=== PATIENT | male | born 1970 | race American Indian/Alaskan Native ===

== ENCOUNTER 2016-09-28 00:32 | Emergency (ER) | payer SELFPAY ==
[2016-09-28 01:27] VITALS: BP 165/118
[2016-09-28 02:00] LABS: Basophils % (Auto) 1.2 % (0.0-1.8); Eosinophils % (Auto) 1.8 % (0.0-4.3); Hematocrit 43.3 % (35.5-45.6); Hemoglobin 14.4 gm/dl (11.8-15.2); Mean Corpuscular HGB Conc 33 % (32-34); Mean Corpuscular Hemoglobin 30 pg (28-32); Mean Corpuscular Volume 91 fl (84-94); Platelet Count 229 K/mm3 (140-440); Red Blood Count 4.75 M/mm3 (3.65-5.03); White Blood Count 6.2 K/mm3 (4.5-11.0)
[2016-09-28 02:15] LABS: Alanine Aminotransferase 21 units/L (7-56); Albumin 3.7 g/dL (3.9-5); Albumin/Globulin Ratio 1.3 %; Alkaline Phosphatase 44 units/L (35-129); Anion Gap 16 mmol/L; Bilirubin,Total < 0.2 mg/dL (0.1-1.2); Blood Urea Nitrogen 11 mg/dL (9-20); Calcium 8.8 mg/dL (8.4-10.2); Carbon Dioxide 26 mmol/L (22-30); Chloride 104.3 mmol/L (98-107); Glucose 88 mg/dL (75-100); Lipase 31 units/L (13-60); Potassium 3.9 mmol/L (3.6-5.0); Sodium 142 mmol/L (137-145); Total Protein 6.6 g/dL (6.3-8.2)
[2016-09-28 03:04] LABS: Bilirubin,Urine NEG (Negative); Blood,Urine SM (Negative); Ketones,Urine NEG (Negative); Leukocyte Esterase,Urine MOD (Negative); Mucus,Urine FEW /HPF; Nitrite,Urine NEG (Negative); Protein,Urine <15 mg/dL mg/dL (Negative); Urobilinogen,Urine < 2.0 mg/dL (<2.0)
--- NOTE | 2016-10-02 00:58 | ED Elopement Review ---
ED Pt Elopement review - Results review Lab results: Laboratory Tests 09/28/16 09/28/16 09/28/16 01:41 01:41 02:28 WBC 6.2 RBC 4.75 Hgb 14.4 Hct 43.3 MCV 91 MCH 30 MCHC 33 RDW 14.0 Plt Count 229 Lymph % (Auto) 50.7 H [place] % (Auto) 9.6 H Eos % (Auto) 1.8 Baso % (Auto) 1.2 Lymph # 3.2 [place] # 0.6 Eos # 0.1 Baso # 0.1 Seg Neutrophils % 36.7 L Seg Neutrophils # 2.3 Sodium 142 Potassium 3.9 Chloride 104.3 Carbon Dioxide 26 Anion Gap 16 BUN 11 Creatinine 1.0 Estimated GFR > 60 BUN/Creatinine Ratio 11.00 Glucose 88 Calcium 8.8 Total Bilirubin < 0.2 AST 21 ALT 21 Alkaline Phosphatase 44 Total Protein 6.6 Albumin 3.7 L Albumin/Globulin Ratio 1.3 Lipase 31 Urine Color Yellow Urine Turbidity Clear Urine pH 6.0 Ur Specific [place] 1.017 Urine Protein <15 mg/dl Urine Glucose (UA) Neg Urine Ketones Neg Urine Blood Sm Urine Nitrite Neg Urine Bilirubin Neg Urine Urobilinogen < 2.0 Ur Leukocyte Esterase Mod Urine WBC (Auto) 21.0 H Urine RBC (Auto) 2.0 U Epithel Cells (Auto) < 1.0 Urine Mucus Few - Call Back decision Pt Call Back Decision: Pt to F/U with PMD (elevated urine WBC and elevated bp, needs reeval, may return to ed if sx continue)
== END 2016-09-28 04:36 | disposition left against medical advice (07) ==
LOC: ED 00:32
DX: R10.9 Unspecified abdominal pain (principal); R51 Headache; Z53.21 Procedure and treatment not carried out due to patient leaving prior to being seen by health care provider
CPT/HCPCS: 36415; 80053; 81001; 83690; 85025

== ENCOUNTER 2019-08-07 18:17 | Observation (INO) | payer OTHER ==
[2019-08-07 18:55] LABS: Basophils % (Auto) 0.8 % (0.0-1.8); Eosinophils # (Auto) 0.1 K/mm3 (0.0-0.4); Eosinophils % (Auto) 0.9 % (0.0-4.3); Hematocrit 37.9 % (35.5-45.6); Hemoglobin 12.8 gm/dl (11.8-15.2); Lymphocytes # (Auto) 2.7 K/mm3 (1.2-5.4); Lymphocytes % (Auto) 42.4 % (13.4-35.0); Mean Corpuscular HGB Conc 34 % (32-34); Mean Corpuscular Volume 90 fl (84-94); Monocytes # (Auto) 0.6 K/mm3 (0.0-0.8); Platelet Count 249 K/mm3 (140-440); Red Blood Count 4.19 M/mm3 (3.65-5.03); Red Cell Distribution Width 14.5 % (13.2-15.2)
--- NOTE | 2019-08-07 18:58 | Cat Scan Report ---
CT head/brain wo con INDICATION / CLINICAL INFORMATION: 48 years Male; neuro deficits <6hrs or sx present upon awakening. TECHNIQUE: Routine CT head without contrast. All CT scans at this location are performed using CT dos e reduction for ALARA by means of automated exposure control. COMPARISON: None. FINDINGS: BRAIN / INTRACRANIAL CONTENTS: There is an older infarct involving left villalpando radiata. Otherwise, th ere is mild cerebral white matter disease most consistent with microvascular angiopathy which include s the anterior internal capsules at. The ventricular system is appropriate in size and configuration. There is no clear CT evidence of acute intracranial hemorrhage or significant mass effect. ORBITS: No significant abnormality of visualized orbits. SINUSES / MASTOIDS: No significant abnormality the visualized paranasal sinuses or mastoid air cells. CRANIOCERVICAL JUNCTION: No significant abnormality. ADDITIONAL FINDINGS: None. IMPRESSION: 1. There is no old infarct involving left villalpando radiata. 2. There is otherwise mild microvascular angiopathy without CT evidence of acute intracranial hemorrh age. The study was specified as code stroke and called emergently to the ER at 5:59 PM Central standard [place]. Signer Name: Estuardo Toribio MD Signed: 08/07/2019 6:54 PM Workstation Name: [id number]
[2019-08-07 19:08] LABS: BUN/Creatinine Ratio 5; Blood Urea Nitrogen 6 mg/dL (9-20); Hemolysis Index 10
[2019-08-07 19:13] LABS: INR 1.01 (0.87-1.13)
[2019-08-07 19:14] LABS: Partial Thromboplastin Time 26.2 Sec. (24.2-36.6)
--- NOTE | 2019-08-07 19:20 | Emergency Department Report ---
ED Neuro Deficit HPI - General Chief Complaint: Weakness Stated Complaint: HIGH BLOOD PRESSURE, HEADACHE Time Seen by Provider: 08/07/19 18:44 Source: patient Mode of arrival: Ambulatory Limitations: No Limitations - History of Present Illness Initial Comments: [facility] Date of Service: 08/07/2019 18:37:53 Impression: Headache Comments: No new focal neurologic deficits. Recommend symptomatic treatment of headache and BP management per primary team. Metrics: Last Known Well: 08/07/2019 16:30:00 [facility] Notification Time: 08/07/2019 18:36:40 Arrival Time: 08/07/2019 18:17:00 Stamp Time: 08/07/2019 18:37:53 Time First Login Attempt: 08/07/2019 18:40:00 Video Start Time: 08/07/2019 18:40:00 Symptoms: speech changes NIHSS Start Assessment Time: 08/07/2019 18:42:18 Patient is not a candidate for tPA. Video End Time: 08/07/2019 18:47:00 CT head showed no acute hemorrhage or acute core infarct. Presentation is not suggestive of Large Vessel Occlusive disease. Advanced imaging was not obtained as the presentation was not suggestive of Large Vessel Occlusive Disease. Our recommendations are outlined below. Recommendations: Activate Stroke Protocol Admission/Order Set Stroke/Telemetry Floor Neuro Checks Bedside Swallow Eval DVT Prophylaxis IV Fluids, Normal Saline Head of Bed Below 30 Degrees Euglycemia and Avoid Hyperthermia (PRN Acetaminophen) Initiate Aspirin 81 MG Daily Disposition: Sign Out Sign Out: Discussed with Emergency Department Provider History of Present Illness: Patient is a 48 year old Male. Patient was brought by private transportation with symptoms of speech changes 48 yo M with history of stroke with residual expressive aphasia who is presenting with headache and elevated BP. Patient states that he had elevated BP which concerned him. He has baseline expressive aphasia and denies any new neurologic symptoms. CT head showed no acute hemorrhage or acute core infarct. Examination: 1A: Level of Consciousness - Alert; keenly responsive + 0 1B: Ask Month and Age - Both Questions Right + 0 1C: Blink Eyes & Squeeze Hands - Performs Both Tasks + 0 2: Test Horizontal Extraocular Movements - Normal + 0 3: Test Visual [place] - No Visual Loss + 0 4: Test Facial Palsy (Use Grimace if Obtunded) - Normal symmetry + 0 5A: Test Left Arm Motor Drift - No Drift for 10 Seconds + 0 5B: Test Right Arm Motor Drift - No Drift for 10 Seconds + 0 6A: Test Left Leg Motor Drift - No Drift for 5 Seconds + 0 6B: Test Right Leg Motor Drift - No Drift for 5 Seconds + 0 7: Test Limb Ataxia (FNF/Heel-Fatima) - No Ataxia + 0 8: Test Sensation - Normal; No sensory loss + 0 9: Test Language/Aphasia - Mild-Moderate Aphasia: Some Obvious Changes, Without Significant Limitation + 1 10: Test Dysarthria - Mild-Moderate Dysarthria: Slurring but can be understood + 1 11: Test Extinction/Inattention - No abnormality + 0 NIHSS Score: 2 Patient was informed the Neurology Consult would happen via TeleHealth consult by way of interactive audio and video telecommunications and consented to rec eiving care in this manner. Due to the immediate potential for life-threatening deterioration due to underlying acute neurologic illness, I spent 35 minutes providing critical care. This time includes time for face to face visit via telemedicine, review of medical records, imaging studies and discussion of findings with providers, the patient and/or family. Dr Petra Weber [facility] Case [id number] - Related Data Home Medications: Previous Rx's Medication Instructions Recorded Last Taken Type lisinopriL [Zestril TAB] 20 mg PO QDAY #30 tablet 07/20/14 Unknown Rx Ciprofloxacin HCl [Cipro] 500 mg PO Q12H #20 tab 07/21/14 Unknown Rx HYDROcodone/APAP 5-325 [[place] 1 each PO Q6HR PRN #12 tablet 07/21/14 Unknown Rx 5-325 mg TAB] Prednisone [Prednisone 10 mg 10 mg PO .TAPER #1 tab.ds.pk 12/01/14 Unknown Rx (6-Day Pack, 21 Tabs)] cephALEXin [Keflex] 500 mg PO Q6H #28 capsule 12/01/14 Unknown Rx Baclofen [Lioresal] 10 mg PO TID #12 tab 05/11/18 Unknown Rx Ibuprofen [Motrin 800 MG tab] 800 mg PO Q8H PRN #30 tablet 05/11/18 Unknown Rx Allergies/Adverse Reactions: Allergies Allergy/AdvReac Type Severity Reaction Status Date / Time Sulfa (Sulfonamide Allergy Hives Verified 05/10/18 22:35 Antibiotics) ED Review of Systems ROS: Stated complaint: HIGH BLOOD PRESSURE, HEADACHE Other details as noted in HPI ED Past Medical Hx - Past Medical History Hx Hypertension: Yes Hx CVA: Yes - Surgical History Additional Surgical History: right hand - Social History Smoking Status: Never Smoker Substance Use Type: None - Medications Home Medications: Home Medications Medication Instructions Recorded Confirmed Last Taken Type lisinopriL [Zestril TAB] 20 mg PO QDAY #30 tablet 07/20/14 Unknown Rx Ciprofloxacin HCl [Cipro] 500 mg PO Q12H #20 tab 07/21/14 Unknown Rx HYDROcodone/APAP 5-325 [[place] 1 each PO Q6HR PRN #12 tablet 07/21/14 Unknown Rx 5-325 mg TAB] Prednisone [Prednisone 10 mg 10 mg PO .TAPER #1 tab.ds.pk 12/01/14 Unknown Rx (6-Day Pack, 21 Tabs)] cephALEXin [Keflex] 500 mg PO Q6H #28 capsule 12/01/14 Unknown Rx Baclofen [Lioresal] 10 mg PO TID #12 tab 05/11/18 Unknown Rx Ibuprofen [Motrin 800 MG tab] 800 mg PO Q8H PRN #30 tablet 05/11/18 Unknown Rx ED Neuro Physical Exam - General Limitations: No Limitations Suspected Stroke: No ED Course Vital Signs 08/07/19 19:02 Temperature 97.3 F L Pulse Rate 71 Respiratory 16 Rate Blood Pressure 201/125 [Left] O2 Sat by Pulse 98 Oximetry - Lab Data Result diagrams: 08/07/19 Unknown 08/07/19 Unknown Lab Results 08/07/19 08/07/19 08/07/19 Range/Units 18:36 Unknown Unknown WBC 6.3 (4.5-11.0) K/mm3 RBC 4.19 (3.65-5.03) M/mm3 Hgb 12.8 (11.8-15.2) gm/dl Hct 37.9 (35.5-45.6) % MCV 90 (84-94) fl MCH 31 (28-32) pg MCHC 34 (32-34) % RDW 14.5 (13.2-15.2) % Plt Count 249 (140-440) K/mm3 Lymph % (Auto) 42.4 H (13.4-35.0) % [place] % (Auto) 9.0 H (0.0-7.3) % Eos % (Auto) 0.9 (0.0-4.3) % Baso % (Auto) 0.8 (0.0-1.8) % Lymph # 2.7 (1.2-5.4) K/mm3 [place] # 0.6 (0.0-0.8) K/mm3 Eos # 0.1 (0.0-0.4) K/mm3 Baso # 0.0 (0.0-0.1) K/mm3 Seg Neutrophils % 46.9 (40.0-70.0) % Seg Neutrophils # 2.9 (1.8-7.7) K/mm3 PT 13.4 (12.2-14.9) Sec. INR 1.01 (0.87-1.13) APTT 26.2 (24.2-36.6) Sec. Sodium (137-145) mmol/L Potassium (3.6-5.0) mmol/L Chloride (98-107) mmol/L Carbon Dioxide (22-30) mmol/L Anion Gap mmol/L BUN (9-20) mg/dL Creatinine (0.8-1.5) mg/dL Estimated GFR ml/min BUN/Creatinine Ratio % Glucose (75-100) mg/dL POC Glucose 94 (70-105) Calcium (8.4-10.2) mg/dL Troponin T (0.00-0.029) ng/mL 08/07/19 Range/Units Unknown WBC (4.5-11.0) K/mm3 RBC (3.65-5.03) M/mm3 Hgb (11.8-15.2) gm/dl Hct (35.5-45.6) % MCV (84-94) fl MCH (28-32) pg MCHC (32-34) % RDW (13.2-15.2) % Plt Count (140-440) K/mm3 Lymph % (Auto) (13.4-35.0) % [place] % (Auto) (0.0-7.3) % Eos % (Auto) (0.0-4.3) % Baso % (Auto) (0.0-1.8) % Lymph # (1.2-5.4) K/mm3 [place] # (0.0-0.8) K/mm3 Eos # (0.0-0.4) K/mm3 Baso # (0.0-0.1) K/mm3 Seg Neutrophils % (40.0-70.0) % Seg Neutrophils # (1.8-7.7) K/mm3 PT (12.2-14.9) Sec. INR (0.87-1.13) APTT (24.2-36.6) Sec. Sodium 141 (137-145) mmol/L Potassium 3.8 (3.6-5.0) mmol/L Chloride 105.1 (98-107) mmol/L Carbon Dioxide 23 (22-30) mmol/L Anion Gap 17 mmol/L BUN 6 L (9-20) mg/dL Creatinine 1.1 (0.8-1.5) mg/dL Estimated GFR > 60 ml/min BUN/Creatinine Ratio 5 % Glucose 93 (75-100) mg/dL POC Glucose (70-105) Calcium 9.0 (8.4-10.2) mg/dL Troponin T < 0.010 (0.00-0.029) ng/mL Critical care attestation.: If time is entered above; I have spent that time in minutes in the direct care of this critically ill patient, excluding procedure time. ED Disposition Clinical Impression: Headache Disposition: DC-09 OP ADMIT IP TO THIS HOSP Is pt being admited?: Yes Condition: Stable
--- NOTE | 2019-08-07 19:58 | Emergency Department Report ---
ED General Adult HPI - General Chief complaint: Weakness Stated complaint: HIGH BLOOD PRESSURE, HEADACHE Time Seen by Provider: 08/07/19 18:44 Source: patient, RN notes reviewed, old records reviewed Mode of arrival: Ambulatory Limitations: Physical Limitation - History of Present Illness Initial comments: Patient is a 48-year-old gentleman. The patient does not have a local primary care doctor, but he reports that his neurologist is Dr. Ly. He has a history of stroke, with residual speech deficits, and residual right- sided weakness. He presents to the ER with a complaint of chronic stuttering speech, frontal headache, and high blood pressure. A code stroke is called overhead. The patient worse to me that he thought that his right arm was slightly weaker than usual. He believes his symptoms started approximately 1 hour prior to presentation. He denies neck pain, chest pain, abdominal pain, shortness of breath, urinary symptoms. He has difficulty describing the qualitative nature of his headache. He does indicate the headache is frontal. He is able to indicate that the headache was not sudden or thunderclap in nature. A code stroke was called overhead. -: hour(s) Location: head Radiation: other Quality: other Consistency: other Improves with: other Worsens with: other Associated Symptoms: other - Related Data Previous Rx's Medication Instructions Recorded Last Taken Type lisinopriL [Zestril TAB] 20 mg PO QDAY #30 tablet 07/20/14 Unknown Rx Ciprofloxacin HCl [Cipro] 500 mg PO Q12H #20 tab 07/21/14 Unknown Rx HYDROcodone/APAP 5-325 [[place] 1 each PO Q6HR PRN #12 tablet 07/21/14 Unknown Rx 5-325 mg TAB] Prednisone [Prednisone 10 mg 10 mg PO .TAPER #1 tab.ds.pk 12/01/14 Unknown Rx (6-Day Pack, 21 Tabs)] cephALEXin [Keflex] 500 mg PO Q6H #28 capsule 12/01/14 Unknown Rx Baclofen [Lioresal] 10 mg PO TID #12 tab 05/11/18 Unknown Rx Ibuprofen [Motrin 800 MG tab] 800 mg PO Q8H PRN #30 tablet 05/11/18 Unknown Rx Allergies Allergy/AdvReac Type Severity Reaction Status Date / Time Sulfa (Sulfonamide Allergy Hives Verified 05/10/18 22:35 Antibiotics) ED Review of Systems ROS: Stated complaint: HIGH BLOOD PRESSURE, HEADACHE Other details as noted in HPI Comment: Unobtainable due to pts medical conditions Constitutional: denies: fever Eyes: denies: eye pain Respiratory: denies: cough Cardiovascular: denies: syncope Gastrointestinal: denies: abdominal pain Genitourinary: denies: dysuria Neurological: headache, weakness Hematological/Lymphatic: denies: easy bleeding ED Past Medical Hx - Past Medical History Hx Hypertension: Yes Hx CVA: Yes - Surgical History Additional Surgical History: right hand - Social History Smoking Status: Never Smoker Substance Use Type: None - Medications Home Medications: Home Medications Medication Instructions Recorded Confirmed Last Taken Type lisinopriL [Zestril TAB] 20 mg PO QDAY #30 tablet 07/20/14 Unknown Rx Ciprofloxacin HCl [Cipro] 500 mg PO Q12H #20 tab 07/21/14 Unknown Rx HYDROcodone/APAP 5-325 [[place] 1 each PO Q6HR PRN #12 tablet 07/21/14 Unknown Rx 5-325 mg TAB] Prednisone [Prednisone 10 mg 10 mg PO .TAPER #1 tab.ds.pk 12/01/14 Unknown Rx (6-Day Pack, 21 Tabs)] cephALEXin [Keflex] 500 mg PO Q6H #28 capsule 12/01/14 Unknown Rx Baclofen [Lioresal] 10 mg PO TID #12 tab 05/11/18 Unknown Rx Ibuprofen [Motrin 800 MG tab] 800 mg PO Q8H PRN #30 tablet 05/11/18 Unknown Rx ED Physical Exam - General Limitations: Physical Limitation General appearance: alert, anxious - Head Head exam: Present: atraumatic, normocephalic - Eye Eye exam: Present: normal appearance, EOMI. Absent: nystagmus - ENT ENT exam: Present: normal exam, normal orophraynx, mucous membranes moist, normal external ear exam - Neck Neck exam: Present: normal inspection, full ROM. Absent: tenderness, meningismus - Respiratory Respiratory exam: Present: normal lung sounds bilaterally. Absent: respiratory distress - Cardiovascular Cardiovascular Exam: Present: normal rhythm, bradycardia, normal heart sounds. Absent: systolic murmur, diastolic murmur, rubs, gallop - GI/Abdominal GI/Abdominal exam: Present: soft. Absent: distended, tenderness, guarding, rebound, rigid, pulsatile mass - Rectal Rectal exam: Present: deferred - Extremities Exam Extremities exam: Present: normal inspection, full ROM, other (2+ pulses noted in the bilateral upper and lower extremities. There is no long bony tenderness. The pelvis is stable. The muscular compartments are soft. There is no palpab le cord. There is no redness, pus or streaking.). Absent: pedal edema, calf tenderness - Back Exam Back exam: Present: normal inspection. Absent: tenderness, CVA tenderness (R), muscle spasm, paraspinal tenderness, vertebral tenderness - Neurological Exam Neurological exam: Present: alert, motor sensory deficit (there is decreased strength, 4 out of 5, right upper extremity. There is 4 out of 5 strength right lower extremity. Sensation is intact to light touch and 4 extremity.), other (stuttering speech. No facial droop. Tongue midline. Extraocular movements intact bilaterally. Visual acuity intact to finger counting and color perception at a close distance. Hearing is intact.) - Psychiatric Psychiatric exam: Present: normal affect, normal mood - Skin Skin exam: Present: warm, dry, intact, normal color. Absent: rash ED Course Vital Signs 08/07/19 19:02 Temperature 97.3 F L Pulse Rate 71 Respiratory 16 Rate Blood Pressure 201/125 [Left] O2 Sat by Pulse 98 Oximetry ED Medical Decision Making - Lab Data Result diagrams: 08/07/19 Unknown 08/07/19 Unknown Vital Signs 08/07/19 19:02 Temperature 97.3 F L Pulse Rate 71 Respiratory 16 Rate Blood Pressure 201/125 [Left] O2 Sat by Pulse 98 Oximetry Lab Results 08/07/19 08/07/19 08/07/19 Range/Units 18:36 Unknown Unknown WBC 6.3 (4.5-11.0) K/mm3 RBC 4.19 (3.65-5.03) M/mm3 Hgb 12.8 (11.8-15.2) gm/dl Hct 37.9 (35.5-45.6) % MCV 90 (84-94) fl MCH 31 (28-32) pg MCHC 34 (32-34) % RDW 14.5 (13.2-15.2) % Plt Count 249 (140-440) K/mm3 Lymph % (Auto) 42.4 H (13.4-35.0) % [place] % (Auto) 9.0 H (0.0-7.3) % Eos % (Auto) 0.9 (0.0-4.3) % Baso % (Auto) 0.8 (0.0-1.8) % Lymph # 2.7 (1.2-5.4) K/mm3 [place] # 0.6 (0.0-0.8) K/mm3 Eos # 0.1 (0.0-0.4) K/mm3 Baso # 0.0 (0.0-0.1) K/mm3 Seg Neutrophils % 46.9 (40.0-70.0) % Seg Neutrophils # 2.9 (1.8-7.7) K/mm3 PT (12.2-14.9) Sec. INR (0.87-1.13) APTT (24.2-36.6) Sec. Thrombin Time 15.0 L (15.1-19.6) Sec. Sodium (137-145) mmol/L Potassium (3.6-5.0) mmol/L Chloride (98-107) mmol/L Carbon Dioxide (22-30) mmol/L Anion Gap mmol/L BUN (9-20) mg/dL Creatinine (0.8-1.5) mg/dL Estimated GFR ml/min BUN/Creatinine Ratio % Glucose (75-100) mg/dL POC Glucose 94 (70-105) Calcium (8.4-10.2) mg/dL Troponin T (0.00-0.029) ng/mL 08/07/19 08/07/19 Range/Units Unknown Unknown WBC (4.5-11.0) K/mm3 RBC (3.65-5.03) M/mm3 Hgb (11.8-15.2) gm/dl Hct (35.5-45.6) % MCV (84-94) fl MCH (28-32) pg MCHC (32-34) % RDW (13.2-15.2) % Plt Count (140-440) K/mm3 Lymph % (Auto) (13.4-35.0) % [place] % (Auto) (0.0-7.3) % Eos % (Auto) (0.0-4.3) % Baso % (Auto) (0.0-1.8) % Lymph # (1.2-5.4) K/mm3 [place] # (0.0-0.8) K/mm3 Eos # (0.0-0.4) K/mm3 Baso # (0.0-0.1) K/mm3 Seg Neutrophils % (40.0-70.0) % Seg Neutrophils # (1.8-7.7) K/mm3 PT 13.4 (12.2-14.9) Sec. INR 1.01 (0.87-1.13) APTT 26.2 (24.2-36.6) Sec. Thrombin Time (15.1-19.6) Sec. Sodium 141 (137-145) mmol/L Potassium 3.8 (3.6-5.0) mmol/L Chloride 105.1 (98-107) mmol/L Carbon Dioxide 23 (22-30) mmol/L Anion Gap 17 mmol/L BUN 6 L (9-20) mg/dL Creatinine 1.1 (0.8-1.5) mg/dL Estimated GFR > 60 ml/min BUN/Creatinine Ratio 5 % Glucose 93 (75-100) mg/dL POC Glucose (70-105) Calcium 9.0 (8.4-10.2) mg/dL Troponin T < 0.010 (0.00-0.029) ng/mL - EKG Data -: EKG Interpreted by Sd EKG shows normal: sinus rhythm Rate: normal - EKG Data 08/07/19 20:07 The EKG today shows a sinus bradycardia, the 3 bpm, normal axis, the QTc is 386 ms, HI interval 152 ms, left ventricular hypertrophy, Q waves noted in 1 and aVL. There is no endorsement of chest pain. The EKG is abnormal. It is not consistent with STEMI. It appears to be grossly unchanged from prior EKG from April 2015. - Radiology Data Radiology results: report reviewed, image reviewed [facility] [address] [place] [address] Cat Scan Report Signed Patient: CHUN GONZALEZ JR MR#: [id number] : 1970 Acct:[id number] Age/Sex: 48 / M ADM Date: 08/07/19 Loc: ED Attending Dr: Ordering Physician: ESTUARDO QUINTANILLA MD Date of Service: 08/07/19 Procedure(s): CT head/brain wo con Accession Number(s): [id number] cc: ESTUARDO QUINTANILLA MD CT head/brain wo con INDICATION / CLINICAL INFORMATION: 48 years Male; neuro deficits <6hrs or sx present upon awakening. TECHNIQUE: Routine CT head without contrast. All CT scans at this location are performed using CT dose reduction for ALARA by means of automated exposure control. COMPARISON: None. FINDINGS: BRAIN / INTRACRANIAL CONTENTS: There is an older infarct involving left villalpando radiata. Otherwise, there is mild cerebral white matter disease most consistent with microvascular angiopathy which includes the anterior internal capsules at. The ventricular system is appropriate in size and configuration. There is no clear CT evidence of acute intracranial hemorrhage or significant mass effect. ORBITS: No significant abnormality of visualized orbits. SINUSES / MASTOIDS: No significant abnormality the visualized paranasal sinuses or mastoid air cells. CRANIOCERVICAL JUNCTION: No significant abnormality. ADDITIONAL FINDINGS: None. IMPRESSION: 1. There is no old infarct involving left villalpando radiata. 2. There is otherwise mild microvascular angiopathy without CT evidence of acute intracranial hemorrhage. The study was specified as code stroke and called emergently to the ER at 5:59 PM Central standard time. Signer Name: Estuardo Toribio MD Signed: 08/07/2019 6:54 PM Workstation Name: [id number] Transcribed By: MR Dictated By: Estuardo Toribio MD Electronically Authenticated By: Estuardo Toribio MD Signed Date/Time: 08/07/19 2571 - Medical Decision Making Differential diagnosis, including not limited to: Migraine headache, tension headache, cluster headache, complex migraine, stroke, transient ischemic attack Assessment and plan: 48-year-old gentleman with resolved hypertension, with headache, and nonspecific neurologic complaints. Not a TPA candidate after evaluation in conjunction with stroke neurology. Do not appreciate any significant deficits on his exam, with the exception of what appears to be chronic right-sided deficits. Exam not consistent with a large vessel occlusion. Risks of tPA outweigh benefits, without clearcut new onset neurologic deficits. We will treat symptoms, and admitted to the medical service. Case presented to Yany Perez, Working with Nabil Causey Critical care attestation.: If time is entered above; I have spent that time in minutes in the direct care of this critically ill patient, excluding procedure time. ED Disposition Clinical Impression: Headache, History of stroke, Hypertensive urgency Disposition: DC-09 OP ADMIT IP TO THIS HOSP Is pt being admited?: Yes Condition: Stable
[2019-08-07] MEDS ORDERED: METOCLOPRAMIDE 10 MG/2 ML INJ IV ONE (20:05)
[2019-08-07] MEDS ORDERED: LIDOCAINE (4%) 40 MG/ML TOPICAL SOLN 50 ML BOTTLE TP ONE (20:05)
[2019-08-07] MEDS ORDERED: MAGNESIUM SULFATE 2 GM/50 ML BAG IV ONE (20:05)
[2019-08-07] MEDS ORDERED: diphenhydrAMINE 50 MG/ML VIAL IV ONE (20:05)
[2019-08-07] MEDS ORDERED: methylPREDNISolone Sod Succinate 125 MG/2 ML INJ IV ONE (20:05)
[2019-08-07] MEDS ORDERED: ASPIRIN 325 MG TAB PO ONE (20:05)
--- NOTE | 2019-08-07 20:30 | History and Physical Report ---
History of Present Illness Date of examination: 08/07/19 Date of admission: 08/07/2019 Chief complaint: Headache since this am History of present illness: Patient is a 48-year-old male with a past medical history of CVA and hypertension who presents to ER with complaints of headache since this evening. Patient describes headache as originating in his frontal area with radiation to neck, he rates the pain as 10 out of 10 and accompanied by blurry vision, nausea, dizziness and blurred vision. Patient reports symptom onset around 1930, with his blood pressure at home 198/123. Patient transported to [facility] via private vehicle for further care and evaluation. Upon arrival a code stroke was called and Tele-neurology was consulted. Patient initiated on CVA protocol. Patient denies fever, chills, chest pain, palpitations, syncope, dizziness, loss of bowel/bladder continence, vertigo, or recent ill contacts. No prior admission for review. No medication listed for reconciliation at time of admission. Past History Past Medical History: hypertension Past Surgical History: Other (back 09/2018) Social history: smoking (20 years) Family history: CAD, hypertension Medications and Allergies Allergies Allergy/AdvReac Type Severity Reaction Status Date / Time Sulfa (Sulfonamide Allergy Hives Verified 05/10/18 22:35 Antibiotics) Home Medications Medication Instructions Recorded Confirmed Last Taken Type AtorvaSTATin [Lipitor] 40 mg PO QHS 08/07/19 08/07/19 Unknown History amLODIPine [Norvasc] 10 mg PO DAILY 08/07/19 08/07/19 Unknown History hydroCHLOROthiazide [HCTZ] 25 mg PO QDAY 08/07/19 08/07/19 Unknown History lisinopriL [Zestril TAB] 40 mg PO QDAY 08/07/19 08/07/19 Unknown History Active Meds: Active Medications Magnesium Sulfate (Magnesium Sulfate 2gm/50ml) 2 gm in 50 mls @ 100 mls/hr IV ONCE ONE Stop: 08/07/19 20:34 Review of Systems All systems: negative Ears, nose, mouth and throat: headache Cardiovascular: high blood pressure Musculoskeletal: gait dysfunction (ambulates c/ cane) Neurological: aphasia Exam - Physical Exam Narrative exam: - Physical Exam Narrative exam: General appearance: Present: No distress noted - EENT Eyes: Present: PERRL ENT: hearing intact, clear oral mucosa - Neck Neck: Present: supple, normal ROM - Respiratory Respiratory effort: normal Respiratory: bilateral: Clear to auscultation - Cardiovascular Heart Sounds: Present: S1 & S2. Absent: rub, click - Extremities Extremities: pulses symmetrical, No edema Peripheral Pulses: within normal limits - Abdominal General gastrointestinal: Present: , non-distended, normal bowel sounds genitourinary: Present: normal - Integumentary Integumentary: Present: clear, warm, dry - Musculoskeletal Musculoskeletal: gait abnormal, strength unequal bilaterally, right-sided weakness - Psychiatric Psychiatric: appropriate mood/affect, intact judgment & insight - Neurologic Neurologic: CNII-XII intact, moves all extremities - Constitutional Vitals: Temp Pulse Resp BP Pulse Ox 97.3 F L 71 16 201/125 98 08/07/19 19:02 08/07/19 19:02 08/07/19 19:02 08/07/19 19:02 08/07/19 19:02 Results - Labs CBC & Chem 7: 08/07/19 Unknown 08/07/19 Unknown Labs: Laboratory Last Values WBC 6.3 K/mm3 (4.5-11.0) 08/07/19 Unknown RBC 4.19 M/mm3 (3.65-5.03) 08/07/19 Unknown Hgb 12.8 gm/dl (11.8-15.2) 08/07/19 Unknown Hct 37.9 % (35.5-45.6) 08/07/19 Unknown MCV 90 fl (84-94) 08/07/19 Unknown MCH 31 pg (28-32) 08/07/19 Unknown MCHC 34 % (32-34) 08/07/19 Unknown RDW 14.5 % (13.2-15.2) 08/07/19 Unknown Plt Count 249 K/mm3 (140-440) 08/07/19 Unknown Lymph % (Auto) 42.4 % (13.4-35.0) H 08/07/19 Unknown [place] % (Auto) 9.0 % (0.0-7.3) H 08/07/19 Unknown Eos % (Auto) 0.9 % (0.0-4.3) 08/07/19 Unknown Baso % (Auto) 0.8 % (0.0-1.8) 08/07/19 Unknown Lymph # 2.7 K/mm3 (1.2-5.4) 08/07/19 Unknown Elmore # 0.6 K/mm3 (0.0-0.8) 08/07/19 Unknown Eos # 0.1 K/mm3 (0.0-0.4) 08/07/19 Unknown Baso # 0.0 K/mm3 (0.0-0.1) 08/07/19 Unknown Seg Neutrophils % 46.9 % (40.0-70.0) 08/07/19 Unknown Seg Neutrophils # 2.9 K/mm3 (1.8-7.7) 08/07/19 Unknown PT 13.4 Sec. (12.2-14.9) 08/07/19 Unknown INR 1.01 (0.87-1.13) 08/07/19 Unknown APTT 26.2 Sec. (24.2-36.6) 08/07/19 Unknown Thrombin Time 15.0 Sec. (15.1-19.6) L 08/07/19 Unknown Sodium 141 mmol/L (137-145) 08/07/19 Unknown Potassium 3.8 mmol/L (3.6-5.0) 08/07/19 Unknown Chloride 105.1 mmol/L (98-107) 08/07/19 Unknown Carbon Dioxide 23 mmol/L (22-30) 08/07/19 Unknown Anion Gap 17 mmol/L 08/07/19 Unknown BUN 6 mg/dL (9-20) L 08/07/19 Unknown Creatinine 1.1 mg/dL (0.8-1.5) 08/07/19 Unknown Estimated GFR > 60 ml/min 08/07/19 Unknown BUN/Creatinine Ratio 5 % 08/07/19 Unknown Glucose 93 mg/dL (75-100) 08/07/19 Unknown POC Glucose 94 (70-105) 08/07/19 18:36 Calcium 9.0 mg/dL (8.4-10.2) 08/07/19 Unknown Troponin T < 0.010 ng/mL (0.00-0.029) 08/07/19 Unknown - Imaging and Cardiology EKG: report reviewed (sinus bradycardia) CT Scan - head: report reviewed (IMPRESSION: 1. There is no old infarct involving left villalpando radiata. 2. There is otherwise mild microvascular angiopathy without CT evidence of acute intracranial hemorrhage. ) Assessment and Plan Assessment and plan: Hypertensive urgency (malignant) -BP on admission 198/123 -Hx Hypertension -Continue to monitor BP -Resume home antihypertensive meds to optimize BP -IV antihypertensive when necessary R/O TIA -CT Head negative -Tele-Neurology consulted; recommendations appreciated -MRI brain pending -Neuro Checks -Continue statin -Neurology consulted Aphasia -currently in Outpt therapy -supportive care DVT prophylaxis -SCDs bilateral Advance Directives: No VTE prophylaxis?: Chemical Plan of care discussed with patient/family: Yes
[2019-08-07] MEDS ORDERED: ACETAMINOPHEN 325 MG TAB PO PRN (20:31)
[2019-08-07] MEDS ORDERED: ONDANSETRON 4 MG/2 ML INJ IV PRN (20:31)
[2019-08-07] MEDS ORDERED: MORPHINE 2 MG/1 ML INJ IV PRN (20:31)
[2019-08-07] MEDS ORDERED: MAGNESIUM HYDROXIDE (MOM) ORAL LIQD UDC PO PRN (20:31)
[2019-08-08 06:27] LABS: Basophils % (Auto) 0.2 % (0.0-1.8); Hematocrit 39.7 % (35.5-45.6); Hemoglobin 13.3 gm/dl (11.8-15.2); Lymphocytes # (Auto) 0.9 K/mm3 (1.2-5.4); Lymphocytes % (Auto) 18.5 % (13.4-35.0); Mean Corpuscular HGB Conc 34 % (32-34); Mean Corpuscular Volume 91 fl (84-94); Monocytes # (Auto) 0.1 K/mm3 (0.0-0.8); Monocytes % (Auto) 1.1 % (0.0-7.3); Platelet Count 244 K/mm3 (140-440); Red Blood Count 4.38 M/mm3 (3.65-5.03); Red Cell Distribution Width 14.6 % (13.2-15.2)
[2019-08-08 06:37] LABS: BUN/Creatinine Ratio 7; Blood Urea Nitrogen 7 mg/dL (9-20); Calcium 9.1 mg/dL (8.4-10.2); Chol/HDL Ratio 3.92 %; HDL Cholesterol 42 mg/dL (40-59); Hemolysis Index 3; LDL Cholesterol,Direct 117 mg/dL (50-130)
[2019-08-08] MEDS ORDERED: ASPIRIN 325 MG TAB PO SCH (10:00)
--- NOTE | 2019-08-08 12:34 | Discharge Summary ---
Providers - Providers Date of Admission: 08/07/19 20:31 Date of discharge: 08/08/19 Attending physician: ZECHARIAH SCHWAB 08/07/19 20:31 Occupational Therapy Evaluate and Treat [CONS] Routine Comment: Reason For Exam: Neuro deficits Physical Therapy Evaluation and Treat [CONS] Routine Comment: Reason For Exam: Neuro deficits Primary care physician: DIRECTOR OF TRANSPORTATION Hospitalization Condition: Stable Pertinent studies: CT head Hospital course: Discharge diagnosis: Hypertensive urgency (malignant) -BP on admission 198/123 -Resume home antihypertensive meds to optimize BP Headache, severe -CT Head negative -Tele-Neurology consulted; no acute sensory-motor deficit - not suspect TIA Aphasia -currently in Outpt therapy -supportive care Hyperkalemia, hold lisinopril DVT prophylaxis -SCDs bilateral Disposition: DC-01 TO HOME OR SELFCARE Time spent for discharge: 34 minutes Core Measure Documentation - Palliative Care Palliative Care/ Comfort Measures: Not Applicable - Core Measures Any of the following diagnoses?: none Exam - Constitutional Vitals: Temp Pulse Resp BP Pulse Ox 98.1 F 63 18 130/87 99 08/08/19 07:55 08/08/19 11:45 08/08/19 07:55 08/08/19 07:55 08/08/19 07:55 General appearance: Present: no acute distress, well-nourished - EENT Eyes: Present: PERRL ENT: hearing intact, clear oral mucosa - Neck Neck: Present: supple, normal ROM - Respiratory Respiratory effort: normal Respiratory: bilateral: CTA - Cardiovascular Heart Sounds: Present: S1 & S2. Absent: rub, click - Extremities Extremities: pulses symmetrical, No edema Peripheral Pulses: within normal limits - Abdominal General gastrointestinal: Present: soft, non-tender, non-distended, normal bowel sounds - Integumentary Integumentary: Present: clear, warm, dry - Musculoskeletal Musculoskeletal: gait normal, strength equal bilaterally - Psychiatric Psychiatric: appropriate mood/affect, intact judgment & insight - Neurologic Neurologic: CNII-XII intact, moves all extremities Plan Activity: advance as tolerated Weight Bearing Status: Weight Bear as Tolerated Diet: low fat, low salt Additional Instructions: f/u with PCP in one week. MRI brain outpt Follow up with: BOB VERDE MD [Primary Care Provider] - 7 Days PENNIE LEPE MD [Staff Physician] - 7 Days Prescriptions: AtorvaSTATin [Lipitor] 40 mg PO QHS #30 amLODIPine 10 mg PO DAILY #30 Aspirin EC [Halfprin EC] 81 mg PO QDAY #30 tablet. hydroCHLOROthiazide [HCTZ] 25 mg PO QDAY #30
[2019-08-08 13:07] VITALS: BP 145/96
[2019-08-09] MEDS ORDERED: hydroCHLOROthiazide 25 MG TAB PO SCH (10:00)
[2019-08-09] MEDS ORDERED: amLODIPine 10 MG TAB PO SCH (10:00)
[2019-08-09] MEDS ORDERED: LISINOPRIL 40 MG TAB PO SCH (10:00)
== END 2019-08-08 13:40 | disposition home or self-care (01) ==
LOC: ED 18:17 → 4A 20:31
PROVIDERS: ADMIT Internal Medicine Geriatric Medicine; ATTEND Internal Medicine
DX: I16.0 Hypertensive urgency (principal); R51 Headache; R47.01 Aphasia; F17.200 Nicotine dependence, unspecified, uncomplicated; Z86.73 Personal history of transient ischemic attack (TIA), and cerebral infarction without residual deficits
CPT/HCPCS: 36415; 70450; 80048; 80061; 82962; 84484; 85025; 85610; 85670; 85730; 87116; 93005; 93010; 96365; 96375; 97165; 99284; A9270; G0378; J1200; J2270; J2765; J2930; J3475